=== PATIENT | male | born 1955 | race Caucasian/White ===

== ENCOUNTER 2018-02-18 16:07 | Emergency (ER) | payer OTHER ==
[2018-02-18] MEDS ORDERED: HYDROcodone/ACETAMIN 5-325 MG* 1 TAB PO ONE (16:32)
--- NOTE | 2018-02-18 17:02 | RAD ---
INDICATION: Worsening left hand swelling 3 days after a fall. Relevant surgical history includes amputation of the left small finger. COMPARISON: None. TECHNIQUE: 2 views of the left hand and 3 views of the wrist were obtained. FINDINGS: There is a minimally displaced and minimally impacted comminuted fracture involving the distal left radius. On the lateral view the lunate is tilted in the volar direction which may be chronic as there is sclerotic change at the articulating services of the distal lunate and capitate. The patient is status post amputation the left small finger and most of the left fifth metacarpal. Degenerative changes at the left thumb metacarpal trapezium joint include sclerotic bony remodeling and radial subluxation of the metacarpal. The distal phalanges of the index and middle fingers of the left hand are shortened. IMPRESSION: 1. Comminuted minimally impacted fracture of the distal left radius. 2. Postsurgical and degenerative changes as described above. Requisition includes amputation of the left small finger. Did the patient also undergo amputation of the distal phalanges of the left index and middle finger?
[2018-02-18 18:24] VITALS: BP 134/92
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
== END 2018-02-18 18:22 | disposition home or self-care (01) ==
LOC: ED 16:07
DX: S52.502A Unspecified fracture of the lower end of left radius, initial encounter for closed fracture (principal); M79.642 Pain in left hand; Z86.79 Personal history of other diseases of the circulatory system; F17.210 Nicotine dependence, cigarettes, uncomplicated; W10.9XXA Fall (on) (from) unspecified stairs and steps, initial encounter; Y92.9 Unspecified place or not applicable
CPT/HCPCS: 99282

== ENCOUNTER 2019-09-28 20:11 | Emergency (ER) | payer OTHER ==
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
[2019-09-28 20:51] LABS: ABS Eosinophils 0.1 10^3/ul (0-0.6); ABS Lymphocytes 0.9 10^3/ul (1.0-4.8); ABS Monocytes 0.3 10^3/ul (0-0.8); ABS Neutrophils 2.9 10^3/ul (1.5-7.7); Eosinophil % 1.3 %; Hematocrit 38 % (42-52); Hemoglobin 13.4 g/dL (14.0-18.0); Lymphocyte % 21.3 %; Mean Corpuscular HGB Conc 35 g/dL (31-36); Mean Corpuscular Hemoglobin 34 pg (27-31); Mean Corpuscular Volume 98 fL (80-94); Mean Platelet Volume 7.3 fL (7.4-10.4); Platelet Count 130 10^3/uL (150-450); Red Blood Count 3.89 10^6 /uL (4.18-5.48); Red Cell Distribution Width 18 % (10-15); White Blood Count 4.2 10^3/uL (3.5-10.8)
[2019-09-28 20:59] LABS: Activated Partial Thrombo Time 29.3 seconds (26.0-38.0); INR 0.97 (0.82-1.09)
[2019-09-28 21:07] LABS: Albumin 3.7 g/dL (3.2-5.2); Albumin/Globulin Ratio 1.3 (1-3); BUN/Creatinine Ratio 17.5 (8-20); Calcium 9.3 mg/dL (8.6-10.3); EGFR African American 156.1 (>60); Globulin 2.8 g/dL (2-4); Magnesium 1.3 mg/dL (1.9-2.7); Total Bilirubin 0.4 mg/dL (0.2-1.0); Total Protein 6.5 g/dL (6.4-8.9)
[2019-09-28] MEDS: Iohexol 300* (CONTRAST) 10 ML SDV IV ONE (23:17)
[2019-09-29] MEDS: Magnesium Chloride EC TAB* 64 MG PO ONE
[2019-09-29] MEDS: Potassium Chlor TAB* 20 MEQ TAB.ER PO ONE
--- NOTE | 2019-09-29 03:30 | ED ---
Progress - Progress Note Progress Note: Patient is received as a sign out from DEBO Hernandez at [phone] 19 pending sobriety of this alcohol intoxicated patient. 0647 - Patient is awake, alert and oriented x3. He is capable of ambulation with a steady gait and is able to be discharged at this time. Re-Evaluation - Re-Evaluation First Eval Re-Evaluation Time: 06:47 Change: Improved Comment: 0647 - Patient is awake, alert and oriented x3. He is capable of ambulation with a steady gait and is able to be discharged at this time. Course/Dx - Course Course Of Treatment: 63-year-old male sent unchanged significantly with acute alcohol intoxication. Patient slept for quite a while. When his blood alcohol level less than T was awake and alert and ready to be discharged. Patient discharged with transportation. Follow up with PCP. We'll observe for any worsening symptoms. - Diagnoses Provider Diagnoses: Fall, Intoxication Discharge ED - Sign-Out/Discharge Documenting (check all that apply): Patient Departure - discharge , Receiving Sign-Out Receiving patient FROM: Del Hernandez - Discharge Plan Condition: Stable Disposition: HOME Patient Education Materials: Alcohol Intoxication (ED), Abuse of Alcohol (ED), Fall Prevention (ED) Referrals: Tio Barber MD [Primary Care Provider] - Additional Instructions: You were seen in the emergency department today due to a fall. Laboratory studies, imaging was done and showed no acute medical problems requiring intervention at this time. you sustained no significant trauma from your fall including fractures. You were very intoxicated in the emergency department. Please see your primary care provider when you are willing to cut back your alcohol intake for detox as detoxing alone can be life-threatening. Please return to the emergency department immediately if you develop any new or worsening symptoms. - Billing Disposition and Condition Condition: STABLE Disposition: Home - Attestation Statements Document Initiated by Scribe: Yes Documenting Scribe: DINA JUSTIN Provider For Whom Joey is Documenting (Include Credential): JORDIN LI MD Scribe Attestation: DINA Miller, scribed for JORDIN LI MD on 09/29/19 at 0652. Scribe Documentation Reviewed: Yes Provider Attestation: The documentation as recorded by the DINA parsons accurately reflects the service I personally performed and the decisions made by me, JORDIN LI MD Status of Scribe Document: Viewed
[2019-09-29 06:55] VITALS: BP 101/59
[2019-09-29] MEDS ORDERED: Ibuprofen TAB* 600 MG ONE (07:04)
[2019-09-29] MEDS: Ibuprofen TAB* 600 MG PO ONE (07:06)
== END 2019-09-29 06:50 | disposition home or self-care (01) ==
LOC: ED 20:11
DX: F10.929 Alcohol use, unspecified with intoxication, unspecified (principal); S40.022A Contusion of left upper arm, initial encounter; S20.219A Contusion of unspecified front wall of thorax, initial encounter; W10.9XXA Fall (on) (from) unspecified stairs and steps, initial encounter; Y92.9 Unspecified place or not applicable; I10 Essential (primary) hypertension; F17.200 Nicotine dependence, unspecified, uncomplicated; E04.1 Nontoxic single thyroid nodule; Z79.899 Other long term (current) drug therapy
CPT/HCPCS: 36415; 70450; 71260; 72125; 74177; 80053; 80320; 83735; 85025; 85610; 85730; 99283; A9270-GY; G0480; Q9967

== ENCOUNTER 2021-01-28 07:59 | Inpatient (IN) ==
[2021-01-28] MEDS ORDERED: NS 0.9% 1000 ml BAG 1,000 ML IV ONE ×2 (08:18→19:56)
[2021-01-28] MEDS ORDERED: NS 0.9% 1000 ml BAG 1,000 ML IV SCH ×4 (08:30→19:30)
[2021-01-28 09:01] LABS: ALT 194 U/L (7-52); AST 822 U/L (13-39); Albumin 3.4 g/dL (3.2-5.2); Albumin/Globulin Ratio 0.7 (1-3); Alcohol, S < 10 mg/dL (<10); Alkaline Phosphatase 86 U/L (34-104); CO2 Carbon Dioxide 18 mmol/L (22-32); Calcium 8.4 mg/dL (8.6-10.3); Chloride 106 mmol/L (101-111); EGFR African American 9.5 (>60); EGFR Non-African American 7.9 (>60); Globulin 4.8 g/dL (2-4); Glucose 257 mg/dL (70-100); Magnesium 4.5 mg/dL (1.9-2.7); Total Protein 8.2 g/dL (6.4-8.9)
[2021-01-28 09:04] LABS: Anion Gap 31 mmol/L (2-11); Potassium 5.1 mmol/L (3.5-5.0); Sodium 155 mmol/L (135-145)
[2021-01-28 09:25] LABS: BUN/Creatinine Ratio 37.4 (8-20); Blood Urea Nitrogen 264 mg/dL (6-24); Creatine Kinase 2873 U/L (10-223)
[2021-01-28] MEDS ORDERED: NS 0.45% 1000 ml BAG 1,000 ML IV SCH ×2 (10:00→11:00)
[2021-01-28] MEDS ORDERED: Piperacillin/Tazobac ADVAN 3.375 GM in NS 0.9% 100 ml BAG 100 ML IV ONE (10:02)
[2021-01-28 11:00] LABS: ABS Basophils 0.1 10^3/ul (0-0.2); ABS Lymphocytes 0.8 10^3/ul (1.0-4.8); ABS Monocytes 0.8 10^3/ul (0-0.8); ABS Neutrophils 11.3 10^3/ul (1.5-7.7); ABS Nucleated RBC 0.1 10^3/ul; Eosinophil % 0.1 %; Hematocrit 59 % (42-52); Hemoglobin 18.7 g/dL (14.0-18.0); Lymphocyte % 6.1 %; Mean Corpuscular HGB Conc 32 g/dL (31-36); Mean Corpuscular Hemoglobin 33 pg (27-31); Mean Corpuscular Volume 103 fL (80-94); Nucleated Red Blood Cells % 1.1; Red Cell Distribution Width 20 % (10-15); White Blood Count 12.9 10^3/uL (3.5-10.8)
[2021-01-28] MEDS ORDERED: Zosyn per Pharmacy NOTE FOLLOW UP SCH (11:00)
[2021-01-28 11:56] LABS: Urine Appearance Cloudy; Urine Bilirubin Negative (Negative); Urine Blood 1+ (Negative); Urine Color Amber; Urine Glucose 1+(50 mg/dL) (Negative); Urine Ketones Negative (Negative); Urine Nitrite Negative (Negative); Urine Protein Negative (Negative); Urine Specific Gravity 1.018 (1.002-1.030); Urine Urobilinogen Positive (Negative)
[2021-01-28 12:04] LABS: Urine Bacteria Absent (Absent); Urine Red Blood Cell 3+(>10/hpf) (Absent); Urine White Blood Cell 3+(>20/hpf) (Absent)
[2021-01-28 12:11] LABS: Large Platelets Present; Mean Platelet Volume 12.6 fL (7.4-10.4); Platelet Count 283 10^3/uL (150-450)
[2021-01-28 12:29] LABS: Urine Benzodiazepine Screen None Detected (None Detect); Urine Cannabinoids Screen None Detected (None Detect); Urine Opiates Screen None Detected (None Detect)
[2021-01-28] MEDS: Propofol 10 mg/ml 100 ML BTL 100 ML IV SCH (13:00)
[2021-01-28] MEDS ORDERED: fentaNYL 250 mcg/5 ml 50 MCG/ML 5 ml VIAL (250 MCG) ONE (13:05)
[2021-01-28] MEDS ORDERED: Etomidate 40 mg/20 ml (2 MG/ML) 20 ml VIAL (40 mg) ONE (13:05)
[2021-01-28] MEDS ORDERED: Succinylcholine 200 mg VIAL 20 mg/ml 10 ml VIAL (200 mg) ONE (13:07)
[2021-01-28 13:31] LABS: ALT 199 U/L (7-52); AST 725 U/L (13-39); Albumin/Globulin Ratio 0.6 (1-3); Alkaline Phosphatase 82 U/L (34-104); CO2 Carbon Dioxide 18 mmol/L (22-32); Calcium 8.8 mg/dL (8.6-10.3); Chloride 108 mmol/L (101-111); EGFR African American 8.7 (>60); EGFR Non-African American 7.2 (>60); Globulin 5.1 g/dL (2-4); Glucose 245 mg/dL (70-100); Total Protein 8.1 g/dL (6.4-8.9)
[2021-01-28 13:34] LABS: Anion Gap 33 mmol/L (2-11); Potassium 6.3 mmol/L (3.5-5.0); Sodium 159 mmol/L (135-145)
[2021-01-28] MEDS ORDERED: Sodium Bicarbonate 8.4% SYR 50 ml SYRINGE IV ONE (13:34)
[2021-01-28] MEDS: Dexamethasone IV 4 MG/ML VIAL 1 ml VIAL IV SLOW PU SCH (13:41)
[2021-01-28] MEDS: Heparin 5000 UNITS/ML 1 mL VIAL SUBCUT SCH ×2 (13:42→20:43)
[2021-01-28] MEDS: Chlorhexidine MOUTHWASH 0.12% 15 ML UDC TOPICAL SCH ×3 (13:42→20:43)
[2021-01-28] MEDS: Norepinephrine 16MCG/ML IVPRE 4,000 MCG/250 ML BAG IV SCH ×3 (13:45→23:12)
[2021-01-28 13:51] LABS: Blood Urea Nitrogen 278 mg/dL (6-24)
[2021-01-28] MEDS ORDERED: Norepinephrine 16MCG/ML IVPRE 4,000 MCG/250 ML BAG IV ONE (13:55)
[2021-01-28] MEDS ORDERED: Albumin Human 25% 0 GM/0 ML BTL IV ONE (14:02)
[2021-01-28] MEDS ORDERED: Albumin Human 5% 12.5 GM/250 ML BTL IV ONE (14:03)
[2021-01-28] MEDS: ZOSYN 3.375 GM Q12H per EXTENDED INFUSION IV SCH (14:28)
[2021-01-28] MEDS: Propofol* 20 ML VIAL - FOR IV LINE PRIMING ONLY SCH (14:32)
[2021-01-28] MEDS ORDERED: Sodium Bicarb 8.4% Vial 50 ML 150 MEQ in D5W 1000 ml BAG 850 ML IV SCH (16:00)
[2021-01-28 17:37] LABS: ALT 187 U/L (7-52); Albumin 2.9 g/dL (3.2-5.2); Albumin/Globulin Ratio 0.7 (1-3); Alkaline Phosphatase 80 U/L (34-104); CO2 Carbon Dioxide 16 mmol/L (22-32); Calcium 7.5 mg/dL (8.6-10.3); Chloride 108 mmol/L (101-111); EGFR African American 8.9 (>60); EGFR Non-African American 7.4 (>60); Globulin 4.2 g/dL (2-4); Glucose 159 mg/dL (70-100); Magnesium 4.2 mg/dL (1.9-2.7); Phosphorus 14.1 mg/dL (2.5-5.0); Total Protein 7.1 g/dL (6.4-8.9)
[2021-01-28 17:55] LABS: Blood Urea Nitrogen 265 mg/dL (6-24); Sodium 157 mmol/L (135-145)
[2021-01-28 18:53] LABS: AST 717 U/L (13-39); Anion Gap 33 mmol/L (2-11); Potassium 5.7 mmol/L (3.5-5.0)
[2021-01-28] MEDS ORDERED: Sodium Polystyrene ORAL.SUSP 15 GM/60 ML BTL PO ONE (19:09)
[2021-01-28] MEDS ORDERED: fentaNYL 100 mcg/2 ml 50 MCG/ML VIAL IV SLOW PU PRN (20:17)
[2021-01-28] MEDS ORDERED: fentaNYL 100 mcg/2 ml 50 MCG/ML VIAL ONE (20:19)
[2021-01-28] MEDS: Thiamine 100 MG/ML 2 ml VIAL 500 MG in NS 0.9% 250 ml 250 ML IV SCH (22:26)
[2021-01-28 22:50] LABS: Calcium 6.5 mg/dL (8.6-10.3); EGFR African American 9.4 (>60); EGFR Non-African American 7.8 (>60)
[2021-01-28 23:40] LABS: Potassium 6.6 mmol/L (3.5-5.0)
[2021-01-28] MEDS ORDERED: Calcium Gluconate 2 GM in NS 0.9% 100 ml BAG 100 ML IV ONE (23:46)
[2021-01-28] MEDS ORDERED: Dextrose 50% Syringe 50 ml 25 GM/50 ML SYRINGE IV PUSH ONE (23:46)
[2021-01-29] MEDS: Sodium Bicarb 8.4% Vial 50 ML 150 MEQ in D5W 1000 ml BAG 850 ML IV SCH ×2 (01:12→08:00)
[2021-01-29] MEDS: Propofol* 20 ML VIAL - FOR IV LINE PRIMING ONLY SCH ×2 (01:42→13:41)
[2021-01-29] MEDS: ZOSYN 3.375 GM Q12H per EXTENDED INFUSION IV SCH ×2 (01:50→13:42)
[2021-01-29] MEDS: Chlorhexidine MOUTHWASH 0.12% 15 ML UDC TOPICAL SCH ×6 (02:09→21:27)
[2021-01-29 02:41] LABS: Calcium 6.5 mg/dL (8.6-10.3); EGFR African American 10.1 (>60); EGFR Non-African American 8.4 (>60)
[2021-01-29 03:01] LABS: Potassium 5.9 mmol/L (3.5-5.0)
[2021-01-29] MEDS ORDERED: Dextrose 50% Syringe 50 ml 25 GM/50 ML SYRINGE IV PUSH ONE ×2 (03:15→08:50)
[2021-01-29 04:19] LABS: Glucose Confirmatory 477 mg/dL (70-100)
[2021-01-29] MEDS: Propofol 10 mg/ml 100 ML BTL 100 ML IV SCH ×4 (04:42→22:52)
[2021-01-29] MEDS: Norepinephrine 16MCG/ML IVPRE 4,000 MCG/250 ML BAG IV SCH ×3 (04:45→17:55)
[2021-01-29] MEDS: Thiamine 100 MG/ML 2 ml VIAL 500 MG in NS 0.9% 250 ml 250 ML IV SCH ×3 (05:31→21:20)
[2021-01-29 05:35] LABS: Hematocrit 44 % (42-52); Mean Corpuscular HGB Conc 32 g/dL (31-36); Mean Corpuscular Hemoglobin 32 pg (27-31); Mean Corpuscular Volume 101 fL (80-94); Mean Platelet Volume 12.3 fL (7.4-10.4); Platelet Count 222 10^3/uL (150-450); Red Blood Count 4.37 10^6 /uL (4.18-5.48); Red Cell Distribution Width 19 % (10-15); White Blood Count 36.7 10^3/uL (3.5-10.8)
[2021-01-29 05:50] LABS: CO2 Carbon Dioxide 24 mmol/L (22-32); Chloride 107 mmol/L (101-111); EGFR African American 9.9 (>60); EGFR Non-African American 8.2 (>60); Glucose 473 mg/dL (70-100); Glucose Confirmatory 473 mg/dL (70-100)
[2021-01-29 05:51] LABS: Anion Gap 21 mmol/L (2-11); Potassium 5.6 mmol/L (3.5-5.0); Sodium 152 mmol/L (135-145)
[2021-01-29 05:52] LABS: Calcium 6.1 mg/dL (8.6-10.3)
[2021-01-29] MEDS ORDERED: Calcium Gluconate 2 GM in NS 0.9% 100 ml BAG 100 ML IV ONE ×2 (05:56→09:30)
[2021-01-29] MEDS ORDERED: Insulin Infusion 100unit/100mL 100 UNIT/100 ML BAG IV SCH (06:00)
[2021-01-29 06:33] LABS: Blood Urea Nitrogen 266 mg/dL (6-24)
[2021-01-29] MEDS: Heparin 5000 UNITS/ML 1 mL VIAL SUBCUT SCH ×3 (06:33→21:27)
[2021-01-29 06:49] LABS: Glucose Confirmatory 493 mg/dL (70-100)
[2021-01-29] MEDS: Dexamethasone IV 4 MG/ML VIAL 1 ml VIAL IV SLOW PU SCH (08:00)
[2021-01-29 08:34] LABS: CO2 Carbon Dioxide 26 mmol/L (22-32); Chloride 107 mmol/L (101-111); EGFR African American 9.9 (>60); EGFR Non-African American 8.2 (>60)
[2021-01-29 08:39] LABS: Anion Gap 19 mmol/L (2-11); Potassium 5.1 mmol/L (3.5-5.0); Sodium 152 mmol/L (135-145)
[2021-01-29 08:43] LABS: Calcium 5.9 mg/dL (8.6-10.3); Glucose 513 mg/dL (70-100); Glucose Confirmatory 513 mg/dL (70-100)
[2021-01-29] MEDS: Pantoprazole VIAL 40 MG VIAL IV SCH ×2 (08:50→21:27)
[2021-01-29] MEDS ORDERED: Famotidine IV 10 MG/ML 2 ml VIAL (20 mg) IV SLOW PU SCH (09:00)
[2021-01-29 09:06] LABS: Hematocrit 42 % (42-52); Hemoglobin 13.6 g/dL (14.0-18.0); Mean Corpuscular HGB Conc 32 g/dL (31-36); Mean Corpuscular Hemoglobin 32 pg (27-31); Mean Corpuscular Volume 99 fL (80-94); Mean Platelet Volume 12.4 fL (7.4-10.4); Platelet Count 224 10^3/uL (150-450); Red Blood Count 4.25 10^6 /uL (4.18-5.48); Red Cell Distribution Width 19 % (10-15); White Blood Count 36.3 10^3/uL (3.5-10.8)
[2021-01-29 09:13] LABS: Blood Urea Nitrogen 265 mg/dL (6-24)
[2021-01-29 09:41] LABS: ABS Basophils 0.1 10^3/ul (0-0.2); ABS Lymphocytes 0.4 10^3/ul (1.0-4.8); ABS Monocytes 0.4 10^3/ul (0-0.8); ABS Neutrophils 35.3 10^3/ul (1.5-7.7); ABS Nucleated RBC 0.4 10^3/ul; Eosinophil % 0.1 %; Lymphocyte % 1.2 %
[2021-01-29] MEDS ORDERED: fentaNYL 100 mcg/2 ml 50 MCG/ML VIAL IV SLOW PU PRN (10:13)
[2021-01-29 10:36] LABS: Urine Appearance Cloudy; Urine Bilirubin Negative (Negative); Urine Blood 3+ (Negative); Urine Color Amber; Urine Glucose 2+(150 mg/dL) (Negative); Urine Ketones Negative (Negative); Urine Nitrite Negative (Negative); Urine Protein 1+(30 mg/dL) (Negative); Urine Specific Gravity 1.017 (1.002-1.030); Urine Urobilinogen Negative (Negative)
[2021-01-29 10:37] LABS: Activated Partial Thrombo Time 27.3 seconds (26.0-38.0); INR 1.77 (0.82-1.09)
[2021-01-29 10:47] LABS: Urine Bacteria Absent (Absent); Urine Red Blood Cell 2+(6-10/hpf) (Absent); Urine Squamous Epithelial Cell Present (Absent); Urine White Blood Cell 3+(>20/hpf) (Absent)
[2021-01-29] MEDS ORDERED: NS 0.45% 1000 ml BAG 1,000 ML IV SCH ×2 (11:00)
[2021-01-29 11:01] LABS: Glucose Confirmatory 413 mg/dL (70-100)
[2021-01-29 13:35] LABS: Hematocrit 42 % (42-52); Hemoglobin 13.7 g/dL (14.0-18.0)
[2021-01-29 13:52] LABS: Calcium 6.9 mg/dL (8.6-10.3); EGFR Non-African American 8.2 (>60)
[2021-01-29 14:27] LABS: Potassium 4.7 mmol/L (3.5-5.0)
[2021-01-29] MEDS: NS 0.45% 1000 ml BAG 1,000 ML IV SCH ×3 (15:19→23:29)
[2021-01-29] MEDS ORDERED: Dextrose 50% Syringe 50 ml 25 GM/50 ML SYRINGE IV PUSH PRN (17:07)
[2021-01-29 17:40] LABS: Hematocrit 42 % (42-52); Hemoglobin 13.3 g/dL (14.0-18.0)
[2021-01-29 17:58] LABS: EGFR African American 9.9 (>60); EGFR Non-African American 8.2 (>60)
[2021-01-29 18:00] LABS: Calcium 6.2 mg/dL (8.6-10.3)
[2021-01-29] MEDS: Insulin GLARGINE 100 un/ml 10 ml VIAL SUBCUT SCH (18:07)
[2021-01-29 23:39] LABS: Hematocrit 40 % (42-52); Hemoglobin 12.8 g/dL (14.0-18.0)
[2021-01-29 23:54] LABS: EGFR African American 9.8 (>60); EGFR Non-African American 8.1 (>60); Potassium 4.7 mmol/L (3.5-5.0)
[2021-01-29 23:57] LABS: Calcium 5.7 mg/dL (8.6-10.3)
[2021-01-30] MEDS ORDERED: Calcium Gluconate 2 GM in NS 0.9% 100 ml BAG 100 ML IV ONE (00:24)
[2021-01-30] MEDS: Propofol* 20 ML VIAL - FOR IV LINE PRIMING ONLY SCH ×2 (00:36→13:03)
[2021-01-30] MEDS: Chlorhexidine MOUTHWASH 0.12% 15 ML UDC TOPICAL SCH ×6 (01:42→22:12)
[2021-01-30] MEDS: ZOSYN 3.375 GM Q12H per EXTENDED INFUSION IV SCH (01:57)
[2021-01-30] MEDS: Heparin 5000 UNITS/ML 1 mL VIAL SUBCUT SCH ×3 (07:38→22:12)
[2021-01-30] MEDS: Thiamine 100 MG/ML 2 ml VIAL 500 MG in NS 0.9% 250 ml 250 ML IV SCH ×3 (07:39→22:24)
[2021-01-30 07:53] LABS: ABS Basophils 0.2 10^3/ul (0-0.2); ABS Lymphocytes 0.5 10^3/ul (1.0-4.8); ABS Monocytes 0.8 10^3/ul (0-0.8); ABS Neutrophils 33.3 10^3/ul (1.5-7.7); ABS Nucleated RBC 0.4 10^3/ul; Calcium 5.8 mg/dL (8.6-10.3); EGFR African American 9.6 (>60); Hematocrit 38 % (42-52); Hemoglobin 12.4 g/dL (14.0-18.0); Lymphocyte % 1.3 %; Mean Corpuscular HGB Conc 33 g/dL (31-36); Mean Corpuscular Hemoglobin 32 pg (27-31); Mean Corpuscular Volume 99 fL (80-94); Mean Platelet Volume 12.6 fL (7.4-10.4); Nucleated Red Blood Cells % 1.1; Phosphorus 7.2 mg/dL (2.5-5.0); Platelet Count 181 10^3/uL (150-450); Potassium 4.6 mmol/L (3.5-5.0); Red Blood Count 3.84 10^6 /uL (4.18-5.48); Red Cell Distribution Width 19 % (10-15); White Blood Count 34.8 10^3/uL (3.5-10.8)
[2021-01-30] MEDS: NS 0.45% 1000 ml BAG 1,000 ML IV SCH (08:38)
[2021-01-30] MEDS: Insulin GLARGINE 100 un/ml 10 ml VIAL SUBCUT SCH (09:07)
[2021-01-30] MEDS: Dexamethasone IV 4 MG/ML VIAL 1 ml VIAL IV SLOW PU SCH (09:07)
[2021-01-30] MEDS: Pantoprazole VIAL 40 MG VIAL IV SCH ×2 (09:07→22:12)
[2021-01-30] MEDS: Propofol 10 mg/ml 100 ML BTL 100 ML IV SCH ×4 (10:16→23:45)
[2021-01-30] MEDS: ceFAZolin 1 GM Q12H (ADVAN) IVPB SCH ×2 (12:54→23:50)
[2021-01-30] MEDS: Norepinephrine 16MCG/ML IVPRE 4,000 MCG/250 ML BAG IV SCH (14:08)
[2021-01-30] MEDS ORDERED: Dextrose 50% Syringe 50 ml 25 GM/50 ML SYRINGE IV PUSH ONE (15:33)
[2021-01-31] MEDS: Propofol* 20 ML VIAL - FOR IV LINE PRIMING ONLY SCH ×3 (02:05→15:58)
[2021-01-31] MEDS: Chlorhexidine MOUTHWASH 0.12% 15 ML UDC TOPICAL SCH ×4 (02:21→15:29)
[2021-01-31] MEDS: Propofol 10 mg/ml 100 ML BTL 100 ML IV SCH ×4 (03:13→12:30)
[2021-01-31] MEDS: Heparin 5000 UNITS/ML 1 mL VIAL SUBCUT SCH (05:29)
[2021-01-31 05:41] LABS: Hematocrit 37 % (42-52); Hemoglobin 12.4 g/dL (14.0-18.0); Mean Corpuscular HGB Conc 33 g/dL (31-36); Mean Corpuscular Hemoglobin 33 pg (27-31); Mean Corpuscular Volume 98 fL (80-94); Mean Platelet Volume 12.4 fL (7.4-10.4); Platelet Count 160 10^3/uL (150-450); Red Blood Count 3.78 10^6 /uL (4.18-5.48); Red Cell Distribution Width 18 % (10-15); White Blood Count 33.7 10^3/uL (3.5-10.8)
[2021-01-31] MEDS: Thiamine 100 MG/ML 2 ml VIAL 500 MG in NS 0.9% 250 ml 250 ML IV SCH (05:48)
[2021-01-31 05:57] LABS: EGFR African American 9.5 (>60); EGFR Non-African American 7.8 (>60)
[2021-01-31 06:09] LABS: Calcium 5.4 mg/dL (8.6-10.3)
[2021-01-31] MEDS: Pantoprazole VIAL 40 MG VIAL IV SCH (08:12)
[2021-01-31] MEDS: Dexamethasone IV 4 MG/ML VIAL 1 ml VIAL IV SLOW PU SCH (08:12)
[2021-01-31] MEDS: Insulin GLARGINE 100 un/ml 10 ml VIAL SUBCUT SCH (08:12)
[2021-01-31] MEDS ORDERED: Vancomycin per Pharmacy 1 EA NOTE FOLLOW UP PRN (08:40)
[2021-01-31] MEDS ORDERED: Vancomycin 1,500 MG in NS 0.9% 250 ml 250 ML IVPB ONE (09:00)
[2021-01-31] MEDS ORDERED: Insulin GLARGINE 100 un/ml 10 ml VIAL SUBCUT ONE (09:00)
[2021-01-31 09:11] LABS: Phosphorus 7.5 mg/dL (2.5-5.0)
[2021-01-31 10:26] LABS: Glucose Confirmatory 325 mg/dL (70-100)
[2021-01-31] MEDS ORDERED: Insulin Infusion 100unit/100mL 100 UNIT/100 ML BAG IV SCH (11:00)
[2021-01-31] MEDS ORDERED: Morphine 10 MG/ML VIAL (1 ml) IV ONE (15:00)
[2021-01-31] MEDS ORDERED: LORazepam 2 mg VIAL 1 ml IV PUSH ONE (15:00)
[2021-01-31] MEDS ORDERED: Atropine 1% (ORAL/SL) 15 ML BTL SL PRN (15:05)
[2021-01-31] MEDS ORDERED: Lorazepam PYXIS KEY ONE ×3 (16:50→20:24)
[2021-01-31] MEDS: Morphine PCA 5 MG/ML Titrate per Protocol PCA SCH ×2 (17:00→17:24)
[2021-01-31] MEDS: LORazepam 2 mg VIAL 1 ml IV PUSH PRN ×3 (19:09→22:10)
[2021-01-31] MEDS ORDERED: Lorazepam PYXIS KEY PRN (20:30)
[2021-02-01] MEDS: LORazepam 2 mg VIAL 1 ml IV PUSH PRN (01:31)
[2021-02-01] MEDS: Morphine PCA 5 MG/ML Titrate per Protocol PCA SCH (02:02)
[2021-02-01 02:55] VITALS: BP 59/45
[2021-02-01] MEDS ORDERED: Vancomycin Random Level NOTE FOLLOW UP ONE (06:00)
[2021-02-01] MEDS ORDERED: Insulin GLARGINE 100 un/ml 10 ml VIAL SUBCUT SCH ×2 (09:00)
[2021-02-01] MEDS ORDERED: Thiamine 100 MG/ML 2 ml VIAL 250 MG in NS 0.9% 100 ml BAG 100 ML IV SCH (09:00)
== END 2021-02-01 02:45 | disposition expired | DRG 720 ==
LOC: ED 07:59 → ICU 10:39
PROVIDERS: ADMIT Internal Medicine Critical Care Medicine; ATTEND Internal Medicine Critical Care Medicine